=== PATIENT | male | born 2000 | race Caucasian/White ===

== ENCOUNTER 2025-08-12 02:51 | Emergency (ER) | payer OTHER ==
[~2025-08-12] VITALS: Ht 180.3 cm; Wt 74.0 kg
[2025-08-12 03:50] LABS: KETONE, URINE AUTO RFX NEGATIVE (NEGATIVE); MUCUS, URINE RFX SMALL (NEGATIVE); NITRITE, URINE AUTO RFX NEGATIVE (NEGATIVE); RBC, URINE AUTO RFX 3 /HPF (0-3); SQUAM EPITHELIAL CELL UR AURFX 0 /HPF (0-6)
[2025-08-12 03:51] LABS: LEUKOCYTE ESTERASE UR AUTO RFX TRACE (NEGATIVE); WBC, URINE AUTO RFX 21 /HPF (0-3)
[2025-08-12 04:51] LABS: Trichomonas vaginalis (AMP) NOT DETECTED (NEGATIVE)
[2025-08-12 05:15] LABS: GC DNA AMPLIFICATION NEGATIVE (NEGATIVE)
[2025-08-12 07:00] VITALS: BP 128/69
[2025-08-12 07:30] VITALS: O2SAT 97
[2025-08-12] MEDS ORDERED: DOXY100T PO (07:31)
[2025-08-12 07:45] VITALS: TEMP 97.7
== END 2025-08-12 07:50 | disposition home or self-care (01) ==
LOC: M ED 02:51
DX: A56.01 Chlamydial cystitis and urethritis (principal); N43.2 Other hydrocele; Z79.2 Long term (current) use of antibiotics